=== PATIENT | male | born 1995 | race American Indian/Alaskan Native ===

== ENCOUNTER 2022-03-26 00:07 | Emergency (ER) | payer SELFPAY ==
[2022-03-26 01:28] LABS: Basophils # (Auto) 0.1 K/mm3 (0.0-0.1); Basophils % (Auto) 0.6 % (0.0-1.8); Eosinophils # (Auto) 0.1 K/mm3 (0.0-0.4); Eosinophils % (Auto) 0.7 % (0.0-4.3); Hematocrit 51.4 % (35.5-45.6); Hemoglobin 17.2 gm/dl (11.8-15.2); Lymphocytes # (Auto) 3.3 K/mm3 (1.2-5.4); Lymphocytes % (Auto) 29.8 % (13.4-35.0); Mean Corpuscular HGB Conc 34 % (32-34); Mean Corpuscular Volume 85 fl (84-94); Monocytes # (Auto) 1.1 K/mm3 (0.0-0.8); Monocytes % (Auto) 9.5 % (0.0-7.3); Platelet Count 187 K/mm3 (140-440); Red Blood Count 6.06 M/mm3 (3.65-5.03); Red Cell Distribution Width 13.1 % (13.2-15.2)
--- NOTE | 2022-03-26 01:50 | XRay Report ---
CHEST 2 VIEWS INDICATION / CLINICAL INFORMATION: tachycardia. COMPARISON: None available. FINDINGS: SUPPORT DEVICES: None. HEART / MEDIASTINUM: No significant abnormality. LUNGS / PLEURA: No significant pulmonary or pleural abnormality. No pneumothorax. ADDITIONAL FINDINGS: No significant additional findings. IMPRESSION: 1. No acute findings. Signer Name: Danielle Robledo MD Signed: 03/26/2022 1:46 AM Workstation Name: [id number]
[2022-03-26 02:39] LABS: Creatine Kinase MB 4.9 ng/mL (0.0-4.0)
[2022-03-26 03:19] LABS: Alanine Aminotransferase 21 units/L (7-56); Albumin 5.2 g/dL (3.9-5); BUN/Creatinine Ratio 9; Blood Urea Nitrogen 13 mg/dL (9-20); Calcium 9.7 mg/dL (8.4-10.2); Hemolysis Index 26
[2022-03-26] MEDS ORDERED: LACTATED RINGERS 2,000 ML IV ONE (03:42)
[2022-03-26 04:49] LABS: BUN/Creatinine Ratio 9; Blood Urea Nitrogen 13 mg/dL (9-20); Calcium 10.1 mg/dL (8.4-10.2); Hemolysis Index 9
[2022-03-26] MEDS ORDERED: hydrOXYzine PAMOATE 25 MG CAP PO ONE (05:28)
--- NOTE | 2022-03-26 05:30 | Emergency Department Report ---
ED General Adult HPI - General Chief complaint: Arrhythmia/Palpitations Stated complaint: FAST HEART RATE PUI?: No Time Seen by Provider: 03/26/22 01:45 Source: patient, EMS Mode of arrival: Stretcher Limitations: No Limitations - History of Present Illness Initial comments: 26-year-old male from [place] presents today with concerns of tachYcardia and also palpitation. Patient said that this past Monday he took 20 tablets of Adipex for his weight loss and time of over dose. Patient denies any other symptoms. Patient denies fever chill night sweat dizziness blurred vision lightheadedness headache tinnitus ear pain runny nose sore throat loss of taste loss smell chest pain short of breath cough abdominal pain nausea vomiting diarrhea constipation joint pain muscle pain new rash and heat or cold intolerance. - Related Data Allergies Allergy/AdvReac Type Severity Reaction Status Date / Time No Known Allergies Allergy Unverified 03/26/22 00:42 ED Review of Systems ROS: Stated complaint: FAST HEART RATE Other details as noted in HPI Comment: All other systems reviewed and negative Constitutional: no symptoms reported, see HPI Eyes: as per HPI ENT: as per HPI Respiratory: no symptoms reported, see HPI Cardiovascular: as per HPI, palpitations Endocrine: no symptoms reported, see HPI Gastrointestinal: as per HPI Genitourinary: as per HPI Musculoskeletal: as per HPI Skin: as per HPI Neurological: as per HPI Psychiatric: as per HPI Hematological/Lymphatic: as per HPI ED Past Medical Hx - Past Medical History Previous Medical History?: Yes Hx Psychiatric Treatment: Yes (Depression) - Surgical History Past Surgical History?: No - Social History Smoking Status: Current Some Day Smoker Substance Use Type: Marijuana ED Physical Exam - General Limitations: No Limitations General appearance: anxious - Head Head exam: Present: atraumatic, normocephalic, normal inspection - Eye Eye exam: Present: normal appearance, PERRL, EOMI Pupils: Present: normal accommodation - ENT ENT exam: Present: normal exam, mucous membranes moist - Neck Neck exam: Present: normal inspection, full ROM - Respiratory Respiratory exam: Present: normal lung sounds bilaterally - Cardiovascular Cardiovascular Exam: Present: regular rate, normal rhythm, normal heart sounds - GI/Abdominal GI/Abdominal exam: Present: soft - Extremities Exam Extremities exam: Present: normal inspection - Back Exam Back exam: Present: normal inspection, full ROM - Neurological Exam Neurological exam: Present: alert, oriented X3, CN II-XII intact - Psychiatric Psychiatric exam: Present: normal affect, normal mood - Skin Skin exam: Present: normal color ED Course Vital Signs 03/26/22 03/26/22 03/26/22 00:07 00:50 00:59 Temperature 98.4 F Pulse Rate 98 H 82 Respiratory 14 Rate Blood Pressure 172/92 O2 Sat by Pulse 99 99 Oximetry 03/26/22 03/26/22 03/26/22 01:01 01:30 02:01 Temperature Pulse Rate 75 81 90 Respiratory 13 13 10 L Rate Blood Pressure 142/98 142/98 142/96 O2 Sat by Pulse 99 98 98 Oximetry 03/26/22 03/26/22 03/26/22 02:31 03:01 03:31 Temperature Pulse Rate 88 113 H 99 H Respiratory 11 L 11 L 12 Rate Blood Pressure 134/93 135/89 142/90 O2 Sat by Pulse 98 99 99 Oximetry 03/26/22 04:01 Temperature Pulse Rate 72 Respiratory 16 Rate Blood Pressure 137/91 O2 Sat by Pulse 99 Oximetry ED Medical Decision Making - Lab Data Result diagrams: 03/26/22 01:09 03/26/22 04:36 - EKG Data -: EKG Interpreted by Nc EKG shows normal: sinus rhythm Rate: normal - EKG Data When compared to previous EKG there are: no significant change 03/26/22 05:29 SINUS RHYTHM AT 69 BPM; NO ST ELEVATION/DEPRESSION; NO WELLEN WAVES. Critical care attestation.: If time is entered above; I have spent that time in minutes in the direct care of this critically ill patient, excluding procedure time. ED Disposition Clinical Impression: Anxious mood Disposition: [address] [place] [address] Is pt being admited?: No Does the pt Need Aspirin: No Condition: Stable Referrals: TARSHA ARCINIGEA MD [Primary Care Provider] - 3-5 Days Time of Disposition: 05:30
[2022-03-26 11:19] VITALS: BP 130/80
[2022-03-26 14:31] LABS: Amphetamine Screen,Urine Negative; Benzodiazepines Screen,Urine Negative; Cocaine Screen,Urine Negative; Methadone Screen,Urine Negative; Opiate Screen,Urine Negative
[2022-03-26 14:56] LABS: Cannabinoid Screen,Urine Positive
== END 2022-03-26 11:05 ==
LOC: ED 00:07
DX: F41.9 Anxiety disorder, unspecified (principal); F32.9 Major depressive disorder, single episode, unspecified; F17.200 Nicotine dependence, unspecified, uncomplicated; F12.90 Cannabis use, unspecified, uncomplicated; Z79.899 Other long term (current) drug therapy
CPT/HCPCS: 36415; 71046; 80048; 80053; 80307; 82550; 82553; 83735; 84443; 84484; 85025; 93005; 96360; 96361; 99285; J7120